=== PATIENT | female | born 1990 | race African-American/Black ===

== ENCOUNTER 2022-12-14 14:03 | Emergency (ER) | payer SELFPAY ==
[~2022-12-14] VITALS: Ht 172.7 cm; Wt 129.0 kg
[2022-12-14 14:07] VITALS: BP 130/82
[2022-12-14] MEDS ORDERED: BACITRACIN ZINC OINT UDPKT TOP ONE (17:00)
[2022-12-14] MEDS ORDERED: LIDOCAINE HCL/PF 1% 10 MG/ML 5ML VIAL INFIL ONE (17:00)
[2022-12-14] MEDS ORDERED: SULF1TAB48 MT (17:44)
[2022-12-14] MEDS ORDERED: METR-167 MT (17:44)
[2022-12-14] MEDS ORDERED: TOPUD PO (17:49)
== END 2022-12-14 18:12 | disposition home or self-care (01) ==
LOC: ER 14:03
DX: L05.91 Pilonidal cyst without abscess (principal)
CPT/HCPCS: 99283